=== PATIENT | female | born 1990 | race American Indian/Alaskan Native ===

== ENCOUNTER 2017-11-13 22:18 | Emergency (ER) | payer OTHER, SELFPAY ==
[2017-11-13 22:35] VITALS: BP 114/65; PULSE 60; RESP 18; TEMP 36.7; O2SAT 100; BMI 25.0
--- NOTE | 2017-11-14 01:12 | ED_ITS ---
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 Patient notes normal distal sensation. Patient denies further trauma to her knee. ROS with no recent constitutional symptoms. Exam Gen: Pleasant, nontoxic-appearing, resting comfortably. HEENT: NC, AT, PEERL, EOMI. Resp: Unlabored respirations with a normal work of breathing. Card: Extremities warm and well perfused. GI: Non-distended. : Deferred MSK: Left knee with full functional range of motion, no tenderness to palpation over the patella, fibular head, or joint line. No MCL or LCL tenderness to palpation, negative Mirza and posterior drawer test. No tenderness to palpation on the quadriceps or patellar tendon, both tendons intact on knee extension. There is mild tenderness over the distal thigh predominantly over long head of the biceps femoris muscle and the distal semitendinosis muscle.No swelling, ecchymosis or effusion. Calf without visible or palpable trauma, muscle compartments soft and non-tender to palpation. Gait - Patient able to take four steps with a non-antalgic gait. Patient able to stand on heels and toes with full strength. Neuro: AO x 3, no facial asymmetry, vision and hearing WNL. Heme/Lymph: Deferred Skin: Normal color with no visible lesions (other than noted above). Psych: Mood and affect appropriate. MDM Previous chart, nursing note, and vitals reviewed. 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 DDx & Evaluation: strongly suspect muscle strain based upon history, no identifiable high-risk features or clinical suspicion for DVT ? given an alternate diagnosis further evaluation is not presently indicated - no evidence of meniscal injury, no evidence of CMS impairment, no evidence of Ugalde?s cyst drainage, crystalline arthropathy or septic joint. Patient instructed to use NSAIDs, rest, and to follow up with PCP as needed. Impression: left thigh pain. (please reference below for remainder of encounter information) Related Data Home Medications Medication Instructions Recorded Confirmed levonorgestrel [Mirena] 1 11/13/17 Allergies Allergy/AdvReac Type Severity Reaction Status Date / Time No Known Allergies Allergy Uncoded 11/13/17 22:37 [facility] Social History Smoking Status: Current every day smoker Exam Initial Vital Signs Initial Vital Signs: Vital Signs Temperature 98.0 F 11/13/17 22:35 Pulse Rate 60 11/13/17 22:35 Respiratory Rate 18 11/13/17 22:35 Blood Pressure 114/65 11/13/17 22:35 Pulse Oximetry 100 11/13/17 22:35 Course Vital Signs - 8 hr 11/13/17 22:35 Temperature 98.0 F Pulse Rate 60 Respiratory Rate 18 Blood Pressure 114/65 Pulse Oximetry 100 Discharge Plan Departure Prescriptions: No Action levonorgestrel [Mirena] 20 mcg/24 hr (5 years) Intrauterine Device 1 RF: 0
[2017-11-14 01:30] VITALS: BP 109/74; PULSE 64; RESP 12; O2SAT 96
== END 2017-11-14 01:31 | disposition home or self-care (01) ==
PROVIDERS: Emergency Provider Emergency Medicine
DX: M79.652 Pain in left thigh (principal)
CPT/HCPCS: 99282

== ENCOUNTER 2018-02-05 14:48 | Emergency (ER) | payer OTHER, MEDICAID, SELFPAY ==
[2018-02-05 14:50] VITALS: BP 118/75; PULSE 83; RESP 15; TEMP 36.9; O2SAT 99; BMI 22.8
[2018-02-05 16:35] VITALS: BP 112/64; PULSE 63; RESP 16; TEMP 36.4; O2SAT 100
--- NOTE | 2018-02-05 16:49 | ED.EYEPROB ---
HPI - Eye Problem General Chief complaint: Eye Problems Stated complaint: LEFT EYE SWELLING,BLURRY,CANT OPEN EYE Time Seen by Provider: 02/05/18 16:49 Source: patient Mode of arrival: ambulatory Limitations: no limitations History of Present Illness HPI Narrative: This 27-year-old female comes in due to 2 to 3 day history of left eye pain and swelling. She states that today, she woke up and the eye was crusty and draining. She has taken ibuprofen, tried cold and hot packs but the inferior eye is quite tender, so that is hard for her to do. She denies any vision change. She has not had fever, any known exposure or upper respiratory symptoms. She denies any other new complaints. She denies any possibility of Related Data Home Medications Medication Instructions Recorded Confirmed levonorgestrel [Mirena] 1 11/13/17 Previous Rx's Medication Instructions Recorded erythromycin 0.5 inch EYE-LEFT Q4HRWA 5 Days #1 02/05/18 gram Allergies Allergy/AdvReac Type Severity Reaction Status Date / Time No Known Drug Allergies Allergy Verified 02/05/18 14:50 Review of Systems Review of Systems All systems reviewed & are unremarkable except as noted in HPI and below PFSH Medical History Chronic back pain (Chronic) Social History Smoking Status: Current every day smoker Comment: Occasional ETOH, no THC or street drugs Exam Narrative Exam Narrative: GENERAL APPEARANCE: Patient sitting comfortably, in no distress. HEENT: PERRL, EOMI, there is a large, tender left internal hordeolum inferiorly, the conjunctiva is erythematous with a small amount of purulent discharge noted. Superior conjunctiva is normal, right eye is normal. LUNGS: Clear to auscultation bilaterally. HEART: Rate and rhythm regular without murmur, normal S1 and S2, no S3 or S4. Initial Vital Signs Initial Vital Signs: Vital Signs Temperature 98.4 F 02/05/18 14:50 Pulse Rate 83 02/05/18 14:50 Respiratory Rate 15 02/05/18 14:50 Blood Pressure 118/75 02/05/18 14:50 Pulse Oximetry 99 02/05/18 14:50 Course Vital Signs - 8 hr 02/05/18 14:50 02/05/18 16:35 Temperature 98.4 F 97.6 F Pulse Rate 83 63 Respiratory Rate 15 16 Blood Pressure 118/75 Blood Pressure [Left Arm] 112/64 Pulse Oximetry 99 100 Discharge Plan Departure Patient Disposition: Home, Self-Care Clinical Impression: Hordeolum, Conjunctivitis Discharge Date/Time: 02/05/18 17:32 Interventions: ED Discharge Assessment Last Done: 02/05/18 17:32 Instructions: DI for Conjunctivitis, DI for Hordeolum Activity Restrictions/Additional Instructions: You should return as we talked about if you have acutely worsening symptoms. Otherwise, start using warm packs to your left lower eye as often as you can tonight. power and recovery supervisor the prescription of antibiotic ointment that I prescribed for you on your weight home, and start that right away. Call our local yarn hauler office, (Dr. Contreras and Moody), and let them know that you were seen in the emergency room this evening and need to be seen for follow-up on Friday as this could need to be drained. Prescriptions: New erythromycin 5 mg/gram (0.5 %) ointment 0.5 inch EYE-LEFT Q4HRWA 5 Days Qty: 1 RF: 0 No Action levonorgestrel [Mirena] 20 mcg/24 hr (5 years) Intrauterine Device 1 RF: 0 Referrals: Tha Uriostegui MD [Physician] -
--- NOTE | 2018-02-05 17:19 | ED_ITS ---
HPI - Eye Problem General Chief complaint: Eye Problems Stated complaint: LEFT EYE SWELLING,BLURRY,CANT OPEN EYE Time Seen by Provider: 02/05/18 16:49 Source: patient Mode of arrival: ambulatory Limitations: no limitations History of Present Illness HPI Narrative: This 27-year-old female comes in due to 2 to 3 day history of left eye pain and swelling. She states that today, she woke up and the eye was crusty and draining. She has taken ibuprofen, tried cold and hot packs but the inferior eye is quite tender, so that is hard for her to do. She denies any vision change. She has not had fever, any known exposure or upper respiratory symptoms. She denies any other new complaints. She denies any possibility of Related Data Home Medications Medication Instructions Recorded Confirmed levonorgestrel [Mirena] 1 11/13/17 Previous Rx's Medication Instructions Recorded erythromycin 0.5 inch EYE-LEFT Q4HRWA 5 Days #1 02/05/18 gram Allergies Allergy/AdvReac Type Severity Reaction Status Date / Time No Known Drug Allergies Allergy Verified 02/05/18 14:50 Review of Systems Review of Systems All systems reviewed & are unremarkable except as noted in HPI and below PFSH Medical History Chronic back pain (Chronic) Social History Smoking Status: Current every day smoker Comment: Occasional ETOH, no THC or street drugs Exam Narrative Exam Narrative: GENERAL APPEARANCE: Patient sitting comfortably, in no distress. HEENT: PERRL, EOMI, there is a large, tender left internal hordeolum inferiorly , the conjunctiva is erythematous with a small amount of purulent discharge noted. Superior conjunctiva is normal, right eye is normal. LUNGS: Clear to auscultation bilaterally. HEART: Rate and rhythm regular without murmur, normal S1 and S2, no S3 or S4. Initial Vital Signs Initial Vital Signs: Vital Signs Temperature 98.4 F 02/05/18 14:50 Pulse Rate 83 02/05/18 14:50 Respiratory Rate 15 02/05/18 14:50 Blood Pressure 118/75 02/05/18 14:50 Pulse Oximetry 99 02/05/18 14:50 Course Vital Signs - 8 hr 02/05/18 14:50 02/05/18 16:35 Temperature 98.4 F 97.6 F Pulse Rate 83 63 Respiratory Rate 15 16 Blood Pressure 118/75 Blood Pressure [Left Arm] 112/64 Pulse Oximetry 99 100 Discharge Plan Departure Patient Disposition: Home, Self-Care Clinical Impression: Hordeolum, Conjunctivitis Discharge Date/Time: 02/05/18 17:32 Interventions: ED Discharge Assessment Last Done: 02/05/18 17:32 Instructions: DI for Conjunctivitis, DI for Hordeolum Activity Restrictions/Additional Instructions: You should return as we talked about if you have acutely worsening symptoms. Otherwise, start using warm packs to your left lower eye as often as you can tonight. lab support tech the prescription of antibiotic ointment that I prescribed for you on your weight home, and start that right away. Call our local timber framer office, (Dr. Contreras and Moody), and let them know that you were seen in the emergency room this evening and need to be seen for follow-up on Friday as this could need to be drained. Prescriptions: New erythromycin 5 mg/gram (0.5 %) ointment 0.5 inch EYE-LEFT Q4HRWA 5 Days Qty: 1 RF: 0 No Action levonorgestrel [Mirena] 20 mcg/24 hr (5 years) Intrauterine Device 1 RF: 0 Referrals: Tha Uroistegui MD [Physician] -
== END 2018-02-05 17:32 | disposition home or self-care (01) ==
PROVIDERS: Emergency Provider Internal Medicine
DX: H00.025 Hordeolum internum left lower eyelid (principal); H10.9 Unspecified conjunctivitis
CPT/HCPCS: 99283